=== PATIENT | female | born 1940 ===

== ENCOUNTER 2016-09-18 08:13 | Day surgery (SDC) | payer MEDICARE, MEDICAID ==
[2016-09-18 09:38] VITALS: RESP 19; TEMP 98
[2016-09-18] MEDS ORDERED: Propofol 10 mg/ml Inj (20 ML) ONE (11:46)
[2016-09-18 12:00] VITALS: O2SAT 98
[2016-09-18] MEDS ORDERED: Lactated Ringer's 500 ML IV SCH (12:00)
[2016-09-18 14:07] VITALS: BP 123/74; PULSE 72
== END 2016-09-18 13:00 | disposition home or self-care (01) ==
LOC: C.ENDO 08:13
PROVIDERS: ATTEND Internal Medicine Gastroenterology
DX: Z12.11 Encounter for screening for malignant neoplasm of colon (principal); K64.8 Other hemorrhoids
CPT/HCPCS: 45378; J2704; J7120